=== PATIENT | male | born 1950 | race Caucasian/White ===

== ENCOUNTER 2019-07-06 06:22 | Emergency (ER) | payer MEDICARE, MEDICAID ==
[~2019-07-06] VITALS: Ht 182.9 cm; Wt 90.4 kg
[~2019-07-06 06:22] MED LIST: AMLODIPINE BESY10 MG PO; ASPIRIN 81 LOW81 MG PO; ASPIRIN EC81 MG PO; BRILINTA90 MG PO; CARVEDILOL6.25 MG PO; CIPRO XR500 M2 PO; FUROSEMIDE20 MG PO; LASIX20 MG PO; LISINOPRIL20 MG PO; METFORMIN500 M2 PO; METFORMIN500 MG PO; METRONIDAZOL500 MG PO; MICRO-K8 ME1 PO; VENTOLIN HF1 IN; ZITHROMAX250 MG PO
[2019-07-06 06:58] LABS: HEMATOCRIT 44.6 % (39.0-50.0); HEMOGLOBIN 14.1 g/dl (14.0-18.0); IMMATURE GRANULOCYTES 0.5 % (0.0-5.0); MEAN CELL VOLUME 93.3 fL CALC (80.0-100.0); MEAN CORPUSCULAR HGB 29.5 pG CALC (26.0-32.0); MEAN CORPUSCULAR HGB CONC 31.6 g/L CALC (32.0-36.0); NEUT# 5.65 thou/uL (1.82-7.42); RED BLOOD COUNT 4.78 mill/uL (4.70-6.10); RED CELL DISTRI WIDTH 14.4 % (11.5-15.5)
[2019-07-06 07:05] LABS: ALBUMIN 4.4 g/dL (3.2-5.0); ANION GAP 15 (6-22 (CALC)); BILIRUBIN, TOTAL 0.4 mg/dL (0.0-1.4); BUN 24 mg/dL (8-23); BUN/CREATININE RATIO 22 (12-20 (CALC)); CARBON DIOXIDE 27 mmol/l (22-30); CHLORIDE 103 mmol/l (95-108); CREATININE 1.1 mg/dL (0.7-1.3); GFR > 60 ML/MIN (>=60 (CALC)); GFR FOR AFR.AMER. > 60 ML/MIN (>=60 (CALC)); POTASSIUM 4.4 mmol/l (3.5-5.1); SGOT/AST 21 u/l (19-48); SODIUM 141 mmol/l (137-146); TOTAL PROTEIN 8.6 g/dL (6.3-8.2)
[2019-07-06 07:06] LABS: ALKALINE PHOSPHATASE 55 u/l (38-126)
[2019-07-06 07:17] LABS: MYOGLOBIN 44 ng/mL (0 - 121)
[2019-07-06 08:40] VITALS: BP 144/78
== END 2019-07-06 08:49 | disposition left against medical advice (07) ==
LOC: ED 06:22
PROVIDERS: Family Medicine
PROC: 5A09357 Assistance with Respiratory Ventilation, Less than 24 Consecutive Hours, Continuous Positive Airway Pressure (ICD-10-PCS; principal; 2019-07-06)
DX: I50.9 Heart failure, unspecified (principal); I25.2 Old myocardial infarction; Z91.19 Patient's noncompliance with other medical treatment and regimen; R06.02 Shortness of breath

== ENCOUNTER 2019-09-04 23:27 | Observation (INO) | payer MEDICARE, MEDICAID ==
[~2019-09-04] VITALS: Ht 182.9 cm; Wt 75.0 kg
[2019-09-04 23:59] LABS: HEMATOCRIT 37.8 % (39.0-50.0); HEMOGLOBIN 12.1 g/dl (14.0-18.0); IMMATURE GRANULOCYTES 0.7 % (0.0-5.0); MEAN CORPUSCULAR HGB 29.4 pG CALC (26.0-32.0); NEUT# 12.44 thou/uL (1.82-7.42); RED BLOOD COUNT 4.11 mill/uL (4.70-6.10); RED CELL DISTRI WIDTH 14.5 % (11.5-15.5)
[2019-09-05] VITALS (13 sets, daily range): BP systolic 135–165; BP diastolic 59–97
[2019-09-05 00:23] LABS: BUN 35 mg/dL (8-23); BUN/CREATININE RATIO 30 (12-20 (CALC)); CARBON DIOXIDE 26 mmol/l (22-30); CHLORIDE 102 mmol/l (95-108); CREATININE 1.2 mg/dL (0.7-1.3); GFR 60 ML/MIN (>=60 (CALC)); GFR FOR AFR.AMER. > 60 ML/MIN (>=60 (CALC)); SODIUM 140 mmol/l (137-146)
[2019-09-05] MEDS ORDERED: LISINOPRIL10 M1 PO (00:32)
[2019-09-05] MEDS ORDERED: METAMUCIL FIBE51.7 % PO (00:34)
[2019-09-05] MEDS ORDERED: MULTI VIT PO (00:35)
[2019-09-05] MEDS ORDERED: PRAVACHOL80 MG PO (00:37)
[2019-09-05] MEDS ORDERED: REMERON15 MG PO (00:38)
[2019-09-05] MEDS ORDERED: SENNA-TABS8.6 MG PO (00:38)
[2019-09-05 00:42] LABS: ANION GAP 18 (6-22 (CALC)); POTASSIUM 5.5 mmol/l (3.5-5.1)
[2019-09-05] MEDS ORDERED: TRAZODONE50 MG PO (00:42)
[2019-09-05] MEDS ORDERED: BACLOFEN10 MG PO (00:43)
[2019-09-05] MEDS ORDERED: COLACE100 MG PO (00:47)
[2019-09-05] MEDS ORDERED: ELIQUIS5 MG PO (00:49)
[2019-09-05] MEDS ORDERED: MARINOL2.5 MG PO (00:50)
[2019-09-05] MEDS ORDERED: NEURONTIN100 MG PO (00:52)
[2019-09-05] MEDS ORDERED: ACETAMINOPHEN325 MG PO ×2 (00:56→01:05)
[2019-09-05] MEDS ORDERED: LACTULOSE10 GM/15 M PO (01:07)
[2019-09-05] MEDS ORDERED: MILK OF MAG2 PO (01:10)
[2019-09-05] MEDS ORDERED: ULTRAM50 M1 PO (01:12)
[2019-09-05] MEDS ORDERED: XANAX0.25 MG PO (01:12)
[2019-09-05 02:53] LABS: URINE BLOOD DIPSTICK SMALL (NEGATIVE); URINE COLOR YELLOW; URINE GLUCOSE - DIPSTICK NEGATIVE (NEGATIVE); URINE KETONE TRACE mg/dL (NEGATIVE); URINE LEUK ESTERASE TRACE (NEGATIVE); URINE NITRITE - DIPSTICK NEGATIVE (Negative); URINE PROTEIN - DIPSTICK NEGATIVE (NEG-TRACE); URINE SPECIFIC GRAVITY 1.025
[2019-09-05 02:56] LABS: URINE BILIRUBIN - DIPSTICK SMALL (NEGATIVE); URINE EPITHELIAL CELLS FEW EPI/hpf (0-FEW); URINE RBC 0-2 RBC/hpf (0-5); URINE WBC 0-2 WBC/hpf (0-5)
[2019-09-05 06:19] LABS: ANION GAP 16 (6-22 (CALC)); BUN 37 mg/dL (8-23); BUN/CREATININE RATIO 35 (12-20 (CALC)); CARBON DIOXIDE 24 mmol/l (22-30); CHLORIDE 104 mmol/l (95-108); CREATININE 1.1 mg/dL (0.7-1.3); GFR > 60 ML/MIN (>=60 (CALC)); GFR FOR AFR.AMER. > 60 ML/MIN (>=60 (CALC)); POTASSIUM 4.4 mmol/l (3.5-5.1); SODIUM 140 mmol/l (137-146)
[2019-09-05 06:56] LABS: CHOLESTEROL HDL RATIO 5.1 (<4.4 (CALC))
== END 2019-09-05 15:40 | disposition short-term general hospital (02) ==
LOC: ED 23:27 → ED-I 09-05 02:04 → ED 09-05 03:00 → ICU 09-05 03:01
PROVIDERS: Family Medicine; Internal Medicine; ADMIT Internal Medicine; ATTEND Internal Medicine
DX: I61.1 Nontraumatic intracerebral hemorrhage in hemisphere, cortical (principal); I69.954 Hemiplegia and hemiparesis following unspecified cerebrovascular disease affecting left non-dominant side; I25.119 Atherosclerotic heart disease of native coronary artery with unspecified angina pectoris; I11.0 Hypertensive heart disease with heart failure; I50.22 Chronic systolic (congestive) heart failure; I25.5 Ischemic cardiomyopathy; I48.0 Paroxysmal atrial fibrillation; K57.32 Diverticulitis of large intestine without perforation or abscess without bleeding; I25.2 Old myocardial infarction; R78.81 Bacteremia; Z86.718 Personal history of other venous thrombosis and embolism; Z95.5 Presence of coronary angioplasty implant and graft; Z79.01 Long term (current) use of anticoagulants; R09.02 Hypoxemia